=== PATIENT | male | born 1975 ===

== ENCOUNTER 2022-06-17 19:18 | Emergency (ER) | payer OTHER ==
[~2022-06-17] VITALS: Ht 167.7 cm; Wt 81.6 kg
--- NOTE | 2022-06-17 19:43 | ED Back Pain ---
General Chief Complaint: Back Problems Stated Complaint: RIGHT SIDE BACK PAIN Source of Information: Patient (PT SPEAKS FAIR [place]ESE) History of Present Illness Date Seen by Provider: Jun 17, 2022 Time Seen by Provider: 19:27 Initial Comments PT ARRIVES VIA POV C/O RIGHT FLANK PAIN SINCE 1300 TODAY NO URINARY SYMPTOMS, VOIDING NORMALLY NO NAUSEA/VOMITING/DIARRHEA--HAS BEEN EATING AND DRINKING OK NO FEVER NO INJURY NO HISTORY OF SIMILAR HE HAS NOT TAKEN ANYTHING FOR PAIN AT ANY TIME PT IS DIABETIC, HAS NOT TAKEN HIS MEDICATIONS FOR 2-3 DAYS. PT STATES HE IS FROM [place], [place]--HAS BEEN HERE IN [place] SINCE SATURDAY FOR WORK, IS GOING BACK TOMORROW. Allergies and Home Medications Allergies Coded Allergies: No Known Drug Allergies (Unverified , 06/17/22) Patient Home Medication List Amitriptyline HCl (Amitriptyline HCl) 10 Mg Tablet, (Reported) Entered as Reported by: EVIE SILVA on 06/17/222043 Last Action: New Order Empagliflozin (Jardiance) 10 Mg Tablet, (Reported) Entered as Reported by: EVIE SILVA on 06/17/222043 Last Action: New Order Rosuvastatin Calcium (Rosuvastatin Calcium) 10 Mg Tablet, (Reported) Entered as Reported by: EVIE SILVA on 06/17/222043 Last Action: New Order Physical Exam Vital Signs Vital Signs - First Documented 06/17/22 19:27 Temp 36.3 Pulse 104 Resp 16 B/P (MAP) 179/101 (127) Pulse Ox 97 O2 Delivery Room Air Capillary Refill : Height, Weight, BMI Height: '" Weight: lbs. oz. kg; BMI Method: Progress/Results/Core Measures Results/Orders Lab Results Laboratory Tests Test 06/17/22 19:30 06/17/22 19:40 Range/Units Urine Color YELLOW Urine Clarity CLEAR Urine pH 8.5 5-9 Urine Specific [place] 1.010 L 1.016-1.022 Urine Protein NEGATIVE NEGATIVE Urine Glucose (UA) 2+ H NEGATIVE Urine Ketones NEGATIVE NEGATIVE Urine Nitrite NEGATIVE NEGATIVE Urine Bilirubin NEGATIVE NEGATIVE Urine Urobilinogen 0.2 < = 1.0 MG/DL Urine Leukocyte Esterase NEGATIVE NEGATIVE Urine RBC (Auto) NEGATIVE NEGATIVE Urine RBC 0-2 /HPF Urine WBC NONE /HPF Urine Crystals NONE /LPF Urine Bacteria FEW H /HPF Urine Casts NONE /LPF Urine Mucus NEGATIVE /LPF Urine Culture Indicated NO Urine Opiates Screen NEGATIVE NEGATIVE Urine Oxycodone Screen NEGATIVE NEGATIVE Urine Methadone Screen NEGATIVE NEGATIVE Urine Propoxyphene Screen NEGATIVE NEGATIVE Urine Barbiturates Screen NEGATIVE NEGATIVE Ur Tricyclic Antidepressants Screen NEGATIVE NEGATIVE Urine Phencyclidine Screen NEGATIVE NEGATIVE Urine Amphetamines Screen NEGATIVE NEGATIVE Urine Methamphetamines Screen NEGATIVE NEGATIVE Urine Benzodiazepines Screen NEGATIVE NEGATIVE Urine Cocaine Screen NEGATIVE NEGATIVE Urine Cannabinoids Screen NEGATIVE NEGATIVE White Blood Count 7.1 4.3-11.0 10^3/uL Red Blood Count 4.87 4.30-5.52 10^6/uL Hemoglobin 13.8 13.3-17.7 g/dL Hematocrit 41 40-54 % Mean Corpuscular Volume 84 80-99 fL Mean Corpuscular Hemoglobin 28 25-34 pg Mean Corpuscular Hemoglobin Concent 34 32-36 g/dL Red Cell Distribution Width 13.2 10.0-14.5 % Platelet Count 299 130-400 10^3/uL Mean Platelet Volume 9.3 9.0-12.2 fL Immature Granulocyte % (Auto) 0 % Neutrophils (%) (Auto) 65 42-75 % Lymphocytes (%) (Auto) 24 12-44 % Monocytes (%) (Auto) 8 0-12 % Eosinophils (%) (Auto) 2 0-10 % Basophils (%) (Auto) 1 0-10 % Neutrophils # (Auto) 4.7 1.8-7.8 10^3/uL Lymphocytes # (Auto) 1.7 1.0-4.0 10^3/uL Monocytes # (Auto) 0.6 0.0-1.0 10^3/uL Eosinophils # (Auto) 0.1 0.0-0.3 10^3/uL Basophils # (Auto) 0.0 0.0-0.1 10^3/uL Immature Granulocyte # (Auto) 0.0 0.0-0.1 10^3/uL Sodium Level 142 135-145 MMOL/L Potassium Level 3.9 3.6-5.0 MMOL/L Chloride Level 106 98-107 MMOL/L Carbon Dioxide Level 25 21-32 MMOL/L Anion Gap 11 5-14 MMOL/L Blood Urea Nitrogen 14 7-18 MG/DL Creatinine 1.08 0.60-1.30 MG/DL Estimat Glomerular Filtration Rate 84 BUN/Creatinine Ratio 13 Glucose Level 239 H 70-105 MG/DL Calcium Level 8.8 8.5-10.1 MG/DL Corrected Calcium 8.7 8.5-10.1 MG/DL Total Bilirubin 0.3 0.1-1.0 MG/DL Aspartate Amino Transf (AST/SGOT) 11 5-34 U/L Alanine Aminotransferase (ALT/SGPT) 15 0-55 U/L Alkaline Phosphatase 56 40-136 U/L Total Protein 6.8 6.4-8.2 GM/DL Albumin 4.1 3.2-4.5 GM/DL Amylase Level 73 25-125 U/L Lipase 97 H 8-78 U/L Serum Alcohol < 10 <10 MG/DL My Orders Orders - DELMIS FUENTES DO Ed Iv/Invasive Line Start (06/17/22 19:32) Ct Abd/Pelvis Wo(Kidney Stone) (06/17/22 19:32) Abdomen/Kub 1view (06/17/22 19:32) Alcohol (06/17/22 19:32) Amylase (06/17/22 19:32) Cbc With Automated Diff (06/17/22 19:32) Comprehensive Metabolic Panel (06/17/22 19:32) Drug Screen Stat (Urine) (06/17/22 19:32) Lipase (06/17/22 19:32) Ua Culture If Indicated (06/17/22 19:32) Ketorolac Injection (Toradol Injection) (06/17/22 20:45) Vital Signs/I&O 06/17/22 19:27 Temp 36.3 Pulse 104 Resp 16 B/P (MAP) 179/101 (127) Pulse Ox 97 O2 Delivery Room Air Diagnostic Imaging Comments KUB--PER RADIOLOGIST REPORT AT 2010 FINDINGS: The bowel gas pattern is nonspecific. There is no abnormal abdominal calcification. The osseous structures are unremarkable. IMPRESSION: Nonspecific bowel gas pattern. CT ABDOMEN / PELVIS--PER RADIOLOGIST REPORT AT 2010 FINDINGS: The heart size is normal. The lung bases are clear. The liver is normal in size and without focal lesion. Gallbladder is unremarkable. There is no biliary ductal dilatation. Spleen is normal. The pancreas and adrenal glands are unremarkable. There is no evidence of nephrolithiasis or obstructive uropathy. The aorta is nonaneurysmal. The bowel gas pattern is nonspecific. There is no free air. Bladder is normal. There is no pelvic mass, adenopathy or free fluid. There is some mild diverticular disease without evidence of diverticulitis. There are degenerative changes in the spine. IMPRESSION: 1. Mild diverticular disease without evidence of diverticulitis. 2. No evidence of nephrolithiasis or obstructive uropathy. 3. No evidence of focal inflammatory process. Reviewed: Reviewed by Me Departure Impression Primary Impression: Right flank pain Additional Impression: NIDDM Disposition: HOME, SELF-CARE Condition: Stable Departure-Patient Inst. Decision time for Depature: 20:45 Referrals: NO,LOCAL PHYSICIAN (PCP/Family) Primary Care Physician Patient Instructions: DIABETES, Flank Pain (DC) Add. Discharge Instructions: MOIST HEAT TO BACK AT 20 MINUTE INTERVALS GET YOUR DIABETIC MEDICATION REFILLED SOON POSSIBLE AND DO NOT MISS DOSES FOLLOW UP WITH YOUR DR AT HOME IN 3-4 DAYS IF NO BETTER RETURN TO ER IF SYMPTOMS WORSEN All discharge instructions reviewed with patient and/or family. Voiced und erstanding. Scripts Naproxen (Naproxen) 500 Mg Tablet. 500 MG PO BID, #20 TAB Prov: DELMIS FUENTES DO 06/17/22 DELMIS FUENTES DO Jun 17, 2022 19:43
[2022-06-17 19:44] LABS: BASOPHILS % (AUTO) 1 % (0-10); EOSINOPHILS # (AUTO) 0.1 10^3/uL (0.0-0.3); EOSINOPHILS % (AUTO) 2 % (0-10); HEMATOCRIT 41 % (40-54); HEMOGLOBIN 13.8 g/dL (13.3-17.7); LYMPHOCYTES # (AUTO) 1.7 10^3/uL (1.0-4.0); LYMPHOCYTES % (AUTO) 24 % (12-44); MEAN CORPUSCULAR HEMOGLOBIN 28 pg (25-34); MEAN CORPUSCULAR HGB CONC 34 g/dL (32-36); MEAN CORPUSCULAR VOLUME 84 fL (80-99); MEAN PLATELET VOLUME 9.3 fL (9.0-12.2); MONOCYTES # (AUTO) 0.6 10^3/uL (0.0-1.0); MONOCYTES % (AUTO) 8 % (0-12); NEUTROPHILS # (AUTO) 4.7 10^3/uL (1.8-7.8); NEUTROPHILS % (AUTO) 65 % (42-75); PLATELET COUNT 299 10^3/uL (130-400); WHITE BLOOD COUNT 7.1 10^3/uL (4.3-11.0)
[2022-06-17 19:44] LABS: BILIRUBIN,URINE NEGATIVE (NEGATIVE); CLARITY,URINE CLEAR; COLOR,URINE YELLOW; GLUCOSE, URINE (UA) 2+ (NEGATIVE); KETONES,URINE NEGATIVE (NEGATIVE); LEUKOCYTE ESTERASE ,URINE NEGATIVE (NEGATIVE); NITRITE,URINE NEGATIVE (NEGATIVE); PH,URINE 8.5 (5-9); PROTEIN,URINE NEGATIVE (NEGATIVE)
[2022-06-17 19:56] LABS: AMPHETAMINE SCREEN, URINE NEGATIVE (NEGATIVE); BARBITURATE SCREEN URINE NEGATIVE (NEGATIVE); BENZODIAZEPINES SCREEN URINE NEGATIVE (NEGATIVE); CANNABINOID SCREEN, URINE NEGATIVE (NEGATIVE); COCAINE SCREEN URINE NEGATIVE (NEGATIVE); METHADONE STAT NEGATIVE (NEGATIVE); OPIATE SCREEN URINE NEGATIVE (NEGATIVE); OXYCODONE STAT NEGATIVE (NEGATIVE); PROPOXYPHENE STAT NEGATIVE (NEGATIVE); TRICYCLIC ANTIDEPRESSANTS SCRE NEGATIVE (NEGATIVE)
[2022-06-17 19:57] LABS: ALBUMIN 4.1 GM/DL (3.2-4.5); CHLORIDE 106 MMOL/L (98-107); POTASSIUM 3.9 MMOL/L (3.6-5.0); SODIUM 142 MMOL/L (135-145)
[2022-06-17 19:58] LABS: AMYLASE 73 U/L (25-125)
--- NOTE | 2022-06-17 19:58 | Diagnostic Imaging Report ---
INDICATION: Abdominal pain. FINDINGS: The bowel gas pattern is nonspecific. There is no abnormal abdominal calcification. The osseous structures are unremarkable. IMPRESSION: Nonspecific bowel gas pattern. Dictated by: Dictated on workstation # [id number]
[2022-06-17 19:59] LABS: CALCIUM 8.8 MG/DL (8.5-10.1)
[2022-06-17 20:00] LABS: GLUCOSE 239 MG/DL (70-105); TOTAL PROTEIN 6.8 GM/DL (6.4-8.2)
[2022-06-17 20:01] LABS: CARBON DIOXIDE 25 MMOL/L (21-32)
[2022-06-17 20:02] LABS: BILIRUBIN,TOTAL 0.3 MG/DL (0.1-1.0)
[2022-06-17 20:03] LABS: ALKALINE PHOSPHATASE 56 U/L (40-136)
[2022-06-17 20:04] LABS: CREATININE SERUM 1.08 MG/DL (0.60-1.30); GFR ESTIMATED 84
--- NOTE | 2022-06-17 20:04 | Diagnostic Imaging Report ---
PROCEDURE: CT urinary tract, rule out kidney stone. TECHNIQUE: Multiple contiguous axial images were obtained through the abdomen and pelvis without the use of intravenous contrast. Auto Exposure Controls were utilized during the CT exam to meet ALARA standards for radiation dose reduction. INDICATION: Flank pain. FINDINGS: The heart size is normal. The lung bases are clear. The liver is normal in size and without focal lesion. Gallbladder is unremarkable. There is no biliary ductal dilatation. Spleen is normal. The pancreas and adrenal glands are unremarkable. There is no evidence of nephrolithiasis or obstructive uropathy. The aorta is nonaneurysmal. The bowel gas pattern is nonspecific. There is no free air. Bladder is normal. There is no pelvic mass, adenopathy or free fluid. There is some mild diverticular disease without evidence of diverticulitis. There are degenerative changes in the spine. IMPRESSION: 1. Mild diverticular disease without evidence of diverticulitis. 2. No evidence of nephrolithiasis or obstructive uropathy. 3. No evidence of focal inflammatory process. Dictated by: Dictated on workstation # [id number]
[2022-06-17 20:05] LABS: BUN/CREATININE RATIO 13
[2022-06-17 20:06] LABS: ALANINE AMINOTRANSFERASE 15 U/L (0-55)
[2022-06-17 20:07] LABS: LIPASE 97 U/L (8-78)
[2022-06-17 20:38] LABS: BACTERIA,URINE FEW /HPF; RBC,URINE 0-2 /HPF
[2022-06-17] MEDS ORDERED: EMPA10TA (20:44)
[2022-06-17] MEDS ORDERED: ROSU10TA28 (20:44)
[2022-06-17] MEDS ORDERED: AMT10T (20:44)
[2022-06-17] MEDS ORDERED: KETOROLAC 30 MG/ML VIAL IVP ONE (20:45)
[2022-06-17] MEDS ORDERED: NAPR500T8 PO (20:48)
[2022-06-17 20:54] VITALS: BP 152/90
== END 2022-06-17 20:55 | disposition home or self-care (01) ==
LOC: ER 19:24
DX: R10.9 Unspecified abdominal pain (principal); E11.9 Type 2 diabetes mellitus without complications; Z91.14 Patient's other noncompliance with medication regimen; Z28.310 Unvaccinated for COVID-19
CPT/HCPCS: 74018; 74176; 80053; 80306; 81000; 82150; 83690; 85025; 99283; G0480; 36415; 80320